=== PATIENT | male | born 1995 | race African-American/Black ===

== ENCOUNTER 2022-08-15 04:38 | Emergency (ER) | payer OTHER ==
[~2022-08-15] VITALS: Ht 172.7 cm; Wt 74.0 kg
[2022-08-15] MEDS ORDERED: KETOROLAC 30MG/ML VIAL IV ONE (06:15)
[2022-08-15] MEDS ORDERED: IBUP-2028 PO (10:09)
[2022-08-15 11:00] VITALS: BP 115/53
== END 2022-08-15 11:02 | disposition home or self-care (01) ==
LOC: ER 04:38
DX: R51.9 Headache, unspecified (principal); M25.562 Pain in left knee; M54.50 Low back pain, unspecified; Z98.890 Other specified postprocedural states; V43.52XA Car driver injured in collision with other type car in traffic accident, initial encounter; Y93.89 Activity, other specified; Y92.488 Other paved roadways as the place of occurrence of the external cause
CPT/HCPCS: 70450; 72100; 73560; 96374; 99284; J1885; L1830

== ENCOUNTER 2023-11-18 19:23 | Emergency (ER) | payer OTHER ==
[~2023-11-18] VITALS: Ht 172.7 cm; Wt 73.2 kg
[~2023-11-18 19:23] MED LIST: IBUP-2028 PO
[2023-11-18 20:22] VITALS: TEMP 98.5; O2SAT 98
[2023-11-18] MEDS ORDERED: NAPR-681 PO (21:41)
[2023-11-18] MEDS ORDERED: CYCL5TAB PO (21:41)
[2023-11-18 22:09] VITALS: BP 128/67; PULSE 68; RESP 15
== END 2023-11-18 22:10 | disposition home or self-care (01) ==
LOC: ER 19:23
DX: S61.213A Laceration without foreign body of left middle finger without damage to nail, initial encounter (principal); S16.1XXA Strain of muscle, fascia and tendon at neck level, initial encounter; J45.909 Unspecified asthma, uncomplicated; V98.8XXA Other specified transport accidents, initial encounter; Y93.89 Activity, other specified; Y92.89 Other specified places as the place of occurrence of the external cause; Y99.8 Other external cause status
CPT/HCPCS: 99283